=== PATIENT | female | born 2005 | race African-American/Black ===

== ENCOUNTER 2024-01-04 18:08 | Emergency (ER) | payer BC, SELFPAY ==
[2024-01-04] MEDS ORDERED: Ondansetron PF 4 MG/2 ML Vial ONE (18:59)
[2024-01-04 19:41] LABS: BHCG - Serum POSITIVE (NEGATIVE); Pregs Control Background? CLEAR/WHITE (CLR/WHITE); Pregs Control Bar Appear? YES (CONTROL BAR)
== END 2024-01-04 21:52 | disposition home or self-care (01) ==
LOC: ERS 18:08
DX: O21.9 Vomiting of pregnancy, unspecified (principal); Z3A.09 9 weeks gestation of pregnancy
CPT/HCPCS: 36415; 76856; 84703; 93976; 96361; 96374; J2405

== ENCOUNTER 2024-02-18 17:12 | Emergency (ER) | payer OTHER, BC ==
[2024-02-18 20:24] LABS: Bilirubin Negative (Negative); Blood, Urine Negative (Negative); CAUTI Indications for Culture Dysuria,urgency,freq; Clarity Turbid (Clear); Glucose, Urine (Dipstick) Normal (Negative); Ketone, Urine Negative (Negative); Leukocyte Negative Leu/uL (Negative); Nitrite Negative (Negative); Protein, Urine (Dipstick) Negative (Neg-Trace); RBC/HPF 0-3 HPF (0-3); Specific Gravity, Urine 1.015 (1.002-1.036); Urobilinogen Normal mg/dL (Less than 2); WBC/HPF 0-3 HPF (0-3)
[2024-02-18 20:31] LABS: Bacteria/HPF 2+ HPF (None Seen)
[2024-02-18 20:32] LABS: Urine Culture Reflex No No
[2024-02-18] MEDS ORDERED: Acetaminophen 500 MG TAB ONE (20:46)
== END 2024-02-18 21:02 | disposition home or self-care (01) ==
LOC: ERS 17:12
DX: O99.891 Other specified diseases and conditions complicating pregnancy (principal); R10.32 Left lower quadrant pain; Z3A.16 16 weeks gestation of pregnancy
CPT/HCPCS: 76815; 81001

== ENCOUNTER 2024-03-21 07:45 | Outpatient (CLI) | payer OTHER | END 2024-03-21 07:46 | disposition home or self-care (01) | LOC: BICULT 07:45 | PROVIDERS: ATTEND Advanced Practice Midwife | DX: Z34.82 Encounter for supervision of other normal pregnancy, second trimester (principal); Z3A.20 20 weeks gestation of pregnancy | CPT/HCPCS: 76805 ==